=== PATIENT | male | born 1995 | race Two or more races ===

== ENCOUNTER 2025-01-15 14:35 | Emergency (ER) | payer OTHER ==
[~2025-01-15] VITALS: Ht 177.8 cm; Wt 81.6 kg
[2025-01-15] MEDS: LORAZEPAM INJ 2 MG/ML VIAL IM ONE (15:00)
[2025-01-15] MEDS ORDERED: LORAZEPAM INJ 2 MG/ML VIAL ONE (15:02)
[2025-01-15 15:19] LABS: PLATELET COUNT (AUTO) 261 K/uL (150-450); RED BLOOD CELL COUNT(AUTO) 4.90 MIL/uL (4.5-6.0); RED CELL DISTRIBUTION WIDTH 14.9 % (11.5-15.0); WHITE BLOOD COUNT (AUTO) 9.8 K/uL (4.3-11.0)
[2025-01-15 15:31] LABS: CALCIUM, SERUM 9.7 mg/dL (8.5-10.1); CREATININE 1.8 mg/dL (0.6-1.3); SODIUM SERUM 140 mmol/L (136-145); UREA NITROGEN, BLOOD 9 mg/dL (7-18)
[2025-01-15 15:36] LABS: ALCOHOL, BLOOD < 3 mg/dL (0-10); ASPARTATE AMINOTRANSFERASE 15 U/L (15-37); TOTAL PROTEIN, SERUM 8.0 g/dL (6.4-8.2)
[2025-01-15] MEDS ORDERED: POTASSIUM CHLORIDE 20 MEQ TAB.PRT.SR PO ONE (16:37)
[2025-01-15] MEDS: IV NS 0.9% 1,000 ML BAG IV ONE (17:01)
[2025-01-15] MEDS: POTASSIUM CHLORIDE 20 MEQ TAB.PRT.SR PO ONE (17:02)
[2025-01-15 19:01] LABS: APPEARANCE,URINE CLEAR (CLEAR); BLOOD, URINE 3+ Ery/uL (NEGATIVE); LEUKOCYTE ESTERASE ,URINE NEGATIVE (NEGATIVE); NITRITE, URINE NEGATIVE (NEGATIVE); UGLUCOSE NEGATIVE (NEGATIVE)
[2025-01-15 19:18] LABS: AMPHETAMINE, URINE NEGATIVE (NEGATIVE); BARBITURATE, URINE NEGATIVE (NEGATIVE); OPIATE, URINE NEGATIVE (NEGATIVE)
[2025-01-15 19:19] LABS: BENZODIAZEPINE, URINE POSITIVE (NEGATIVE); CANNABINOID, URINE POSITIVE (NEGATIVE); COCCAINE, URINE POSITIVE (NEGATIVE)
[2025-01-15 19:50] LABS: ADD URINE CULTURE NO
[2025-01-15 19:51] LABS: SQUAMOUS EPITHELIAL CELL,UR 0-2 /HPF (None Seen)
[2025-01-15 20:07] LABS: CALCIUM, SERUM 8.8 mg/dL (8.5-10.1); CREATININE 1.1 mg/dL (0.6-1.3); SODIUM SERUM 139.0 mmol/L (136-145); UREA NITROGEN, BLOOD 8.0 mg/dL (7-18)
[2025-01-15] MEDS ORDERED: CLON0.5T4 PO (23:39)
[2025-01-15] MEDS ORDERED: DOCU100C36 PO (23:39)
[2025-01-15] MEDS ORDERED: ESCI10TA PO (23:40)
[2025-01-15] MEDS ORDERED: LEVO75TA7 PO (23:40)
[2025-01-15] MEDS ORDERED: SERT50TA PO (23:43)
[2025-01-15] MEDS ORDERED: RISP4TAB70 PO (23:43)
[2025-01-16 15:12] LABS: CALCIUM, SERUM 9.0 mg/dL (8.5-10.1); CREATININE 1.3 mg/dL (0.6-1.3); SODIUM SERUM 141.0 mmol/L (136-145); UREA NITROGEN, BLOOD 10.0 mg/dL (7-18)
[2025-01-16 15:58] VITALS: BP 128/73; TEMP 98.3; O2SAT 98
== END 2025-01-16 16:25 ==
LOC: ER 14:40
DX: R45.851 Suicidal ideations (principal); E87.20 Acidosis, unspecified; E87.6 Hypokalemia; F12.90 Cannabis use, unspecified, uncomplicated; F17.210 Nicotine dependence, cigarettes, uncomplicated; F19.10 Other psychoactive substance abuse, uncomplicated; R00.0 Tachycardia, unspecified; Z65.3 Problems related to other legal circumstances; R94.31 Abnormal electrocardiogram [ECG] [EKG]; F20.9 Schizophrenia, unspecified; Z59.00 Homelessness unspecified; R31.29 Other microscopic hematuria; Z20.822 Contact with and (suspected) exposure to COVID-19
CPT/HCPCS: 99285; 96360; 93005; 85025; 80048 ×3; 82550; 80076; 81001; 36415 ×2; 84484; 87426; 80143; 80320; 80307; J2060; J7030; G0480